=== PATIENT | male | born 1970 | race Hispanic/Latino ===

== ENCOUNTER 2022-01-20 10:48 | Day surgery (SDC) | payer OTHER ==
[2022-01-20] VITALS (7 sets, daily range): BP systolic 106–136; BP diastolic 72–88
[~2022-01-20 10:48] MED LIST: 0.9%NACL 1000ML 1,000 ML IV ONE
[2022-01-20] MEDS ORDERED: PROPOFOL 10 MG/ML 20ML VIAL IV ONE ×2 (11:43→11:44)
[2022-01-20] MEDS ORDERED: GLYCOPYRROLATE 0.2 MG/ML 5 ML VIAL ONE (11:44)
[2022-01-20] MEDS ORDERED: LIDOCAINE PF 100MG/5ML (2%) SYRINGE 5ML ONE (11:44)
[2022-01-20] MEDS ORDERED: OMEGA PO (11:50)
[2022-01-20] MEDS ORDERED: MULT-1367 PO (11:50)
[2022-01-20] MEDS ORDERED: CRAN400C PO (11:50)
[2022-01-20] MEDS ORDERED: BIOT5000 PO (11:50)
[2022-01-20] MEDS ORDERED: VITAMIN D PO (11:50)
[2022-01-20] MEDS ORDERED: ASCO100031 PO (11:50)
[2022-01-20] MEDS ORDERED: MILK THISTLE PO (11:51)
== END 2022-01-20 13:10 | disposition home or self-care (01) ==
LOC: ENDO 10:48 → DAH 10:48 → ENDO 13:10
PROVIDERS: ATTEND Internal Medicine Gastroenterology
DX: Z12.11 Encounter for screening for malignant neoplasm of colon (principal); K57.30 Diverticulosis of large intestine without perforation or abscess without bleeding; K62.1 Rectal polyp; Z98.890 Other specified postprocedural states; Z72.89 Other problems related to lifestyle; Z79.01 Long term (current) use of anticoagulants
CPT/HCPCS: 45380; 87635; A4215 ×2; A4221; A4222; A4223; A4606; A4620; A4663; C9803; J2001; J2704 ×2; J3490; J7030